=== PATIENT | male | born 1950 | race Caucasian/White ===

== ENCOUNTER 2017-11-03 06:09 | Inpatient (IN) ==
[2017-11-03] MEDS ORDERED: CeFAZolin Syr 2,000MG/20 ML 2,000 MG/20 ML SYRINGE IVPB ONE (06:23)
[2017-11-03] MEDS ORDERED: Albuterol 2.5 MG/3 ML NEBULIZER IH ONE ×2 (06:23→12:51)
[2017-11-03] MEDS ORDERED: Ringers Solution, Lactated 1,000 ML IVC SCH (06:30)
--- NOTE | 2017-11-03 07:03 | Anesthesia Evaluation PreOp ---
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 [facility], Hemorroidectomy) Alcohol Use: none Drug use: none Medications and Allergies Ascorbic Acid [Vitamin C] 500 mg PO DAILY 02/16/16 [History] Aspirin Enteric Coated [Aspirin EC] 81 mg PO DAILY 02/16/16 [History] Atorvastatin [Lipitor] 80 mg PO DAILY 02/16/16 [History] Cyanocobalamin (Vitamin B-12) [Vitamin B-12] 1,000 mcg SL DAILY 02/16/16 [ History] Gabapentin [Neurontin] 100 mg PO TID 02/16/16 [History] Nitroglycerin [Nitrostat] 0.4 mg SL Q5M PRN 02/16/16 [History] Sertraline [Zoloft] 100 mg PO DAILY 02/16/16 [History] Sotalol [Betapace] 80 mg PO Q12HR 02/16/16 [History] diazePAM [Valium] 5 mg PO TID PRN 02/16/16 [History] metFORMIN [Glucophage] 500 mg PO QPM 02/16/16 [History] 3 Allergy/AdvReac Type Severity Reaction Status Date / Time novacaine Allergy Fainting Uncoded 10/20/17 12:06 - Meds/Allergy Pre-op Review Medications Reviewed: Yes Allergies Reviewed: Yes Beta Blockers on Current Med List: Yes If Beta Blockers taken, Date/Time (Last Dose taken): 18:00 11/02 Anesthesia Results - Labs Laboratory Tests 02/08/16 10/08/17 10/20/17 10:26 13:05 12:28 WBC 8.9 Hgb 16.0 Hct 49.9 Plt Count 200 INR 0.9 Sodium 139 Potassium 4.2 Chloride 100 Carbon Dioxide 33 H BUN 12 Creatinine 1.08 Eco 10/31 EF-55-60% Mild MR No - Imaging EKG: report reviewed (SR) Anesthesia Exam O2 Sat Height 1.63 m Height 1.63 m Weight 101.605 kg Weight 101.605 kg O2 Sat by Pulse Oximetry 93 Vital Signs Temp Pulse Resp BP Pulse Ox 98.0 F 66 16 145/86 93 11/03/17 06:24 11/03/17 06:24 11/03/17 06:24 11/03/17 06:24 11/03/17 06:24 Blood glucose: 126 NPO (# of Hours): > 8 hrs Pain Scale: 0 Pain Scale Used: Numeric (1 - 10) - HEENT Pupil (Motor): Pupils equal, EOMI Mallampati: III Teeth: Missing Denture Type: Upper: Complete Oral Opening: Greater than 3 - [employer] LOC: Oriented [employer] Motor: Normal RUE, Normal LUE, Normal RLE, Normal LLE, Normal Face [employer] Sensory: Normal: RUE, LUE, RLE, LLE, Face - Cardiac Rhythm: Regular Murmur: None JVD: No Carotid Bruit: No - Pulmonary Breath Sounds: bilateral Clear Respiratory Effort: Symmetrical Anesthesia Assess/Plan ASA Score: 3 Modified Lucio Scale for Level of Consciousness: Cooperative, oriented, and tranquil Anesthetic Plan: General Autologous Blood: Yes Monitoring Plan: Standard Monitors Recovery Plan: PACU
[2017-11-03] MEDS ORDERED: *HR* Propofol 200 MG/20 ML VIAL IVP ONE (07:09)
[2017-11-03] MEDS ORDERED: *HR* FentaNYL (PF) 100 MCG/2 ML VIAL ONE (07:10)
[2017-11-03] MEDS ORDERED: *HR* Rocuronium Bromide 50 MG/5 ML VIAL ONE ×2 (07:11→09:07)
[2017-11-03] MEDS ORDERED: Ondansetron 4 MG/2 ML VIAL ONE (07:11)
[2017-11-03] MEDS ORDERED: Dexamethasone 4 MG/ML VIAL ONE ×2 (07:11→08:42)
[2017-11-03] MEDS ORDERED: Lidocaine -MPF 2% 2 ML VIAL ONE (07:11)
[2017-11-03] MEDS ORDERED: Lidocaine -MPF 4% 5 ML AMPUL ONE (07:12)
[2017-11-03] MEDS ORDERED: *HR* Remifentanil 2 MG VIAL IVP ONE ×2 (07:12→10:36)
[2017-11-03] MEDS ORDERED: *HR* Midazolam HCl 2 MG/2 ML VIAL ONE (07:14)
--- NOTE | 2017-11-03 07:27 | History & Physical Report ---
Date of Encounter: 11/03/17 Time of Encounter: 07:26 24 Hour HP Update - Instructions Instructions: If the History and Physical is less than 30 days old and was completed prior to A.M. admission and or procedure and has NOT been updated on calendar day of procedure please complete this update prior to performing procedure. - Update Patient reports changes in Medical Condition: No Changes in examination, assessment, or condition: No Changes in Medication: No Preop tests/diagnostics Reviewed: Yes Surgery Remains Indicated: Yes Consent for Planned Operative Procedure(s) Verified: Yes - Pre-Operative Checklist Preoperative Checklist Indicated: Yes Prophylactic Antibiotic Ordered: Yes Home Medications Include Beta Cat: Yes Is VTE Prophylaxis Indicated?: Yes
[2017-11-03] MEDS ORDERED: EPHEDrine 50 MG/ML VIAL ONE (07:56)
[2017-11-03] MEDS ORDERED: *HR* PHENYLEPHRINE 1,000 MCG/10 ML SYRINGE IVP ONE (07:57)
[2017-11-03] MEDS ORDERED: *HR* HYDROmorphone 2 MG TABLET PO PRN (09:17)
[2017-11-03] MEDS ORDERED: *HR* OxyCODONE Immed Rel 5 MG TABLET PO PRN (09:17)
[2017-11-03] MEDS ORDERED: Dexamethasone 4 MG/ML VIAL IVP ONE (09:17)
[2017-11-03] MEDS ORDERED: *HR* Promethazine 25 MG/ML VIAL IVP PRN (09:17)
[2017-11-03] MEDS ORDERED: *HR* Morphine 10 MG/ML VIAL ONE (11:43)
--- NOTE | 2017-11-03 12:06 | Operative Note ---
Date of procedure: 11/03/17 Pre-op diagnosis: Left renal mass Post-op diagnosis: same Procedure: Left hand-assisted laparoscopic nephrectomy Implants: None Complications: None Anesthesia: GETA Surgeon: Alex Stanley Was there an assistant golf course superintendent present: No Estimated blood loss (cc): 10 Specimen: left kidney Condition: stable Disposition: PACU Procedure in Detail: Indications: Mr. Tellez is a 67-year-old gentleman has a history of a left renal mass. Given its size and location he elected to undergo a hand-assisted laparoscopic left nephrectomy. He was informed of the risks of the surgery which include but are not limited to bleeding, infection, injury to structures, need for further procedures, recurrence, DVT, PE, ileus, bowel injury, splenic injury, and the risk of anesthesia. He is willing to proceed. Procedure: After informed consent was obtained the patient was brought back to the operating room and placed in the supine position. A timeout was performed. Gen. anesthesia was administered and an endotracheal tube was placed. A Boyd catheter was placed, and clear urine returned. He was then placed in the flank position with the left side up. He was well secured to the operating room table. All pressure points were well-padded. A 7 cm supraumbilical incision was then made. The subcutaneous tissue was then dissected down using cautery. The anterior fascia was scored with the cautery. Using a forceps the fascia was then opened. The peritoneum was then identified below. This was grasped with forceps and opened sharply with Metzenbaum scissors. Entry into the peritoneum was safe. The peritoneum was fully opened the length of the incision. I then lysed some adhesions near the umbilicus and freed the bowel from the abdominal wall. The hand port was then placed. Insufflation was achieved. A separate 1 cm incision was then made lateral to the hand port. Another 1 cm incision was made superior to the hand port. 12 mm trochars were then placed. These were placed under direct visual guidance. The white line of Toldt was then taken down using the Harmonic. The bowel was reflected off the spleen. The drug's fascia was identified and the bowel was further dissected medially. Dissection proceeded medial to the kidney and the ureter was identified. This was retracted anteriorly. The gonadal vein was identified and retracted inferiorly. Dissection proceeded up to the level of the renal vein. The renal vein was dissected out. Dissection then proceeded further superiorly. A window behind the vein was created. With my fingers I was able to palpate the artery and I was able to completely get around the hilum. The 45 mm stapler was then introduced. The hilum was stapled. Hemostasis was adequate. Attention was then turned back to the inferior aspect of the kidney. The ureter was divided with the Harmonic scalpel. The tail of the Gerota's fat was dissected and I proceeded to free the kidney laterally. The final section of the dissection occurred superiorly. The kidney was retracted medially and I was able to free those adhesions near the spleen. The adrenal gland was identified. This was left with the patient and dissection proceeded inferior to it freeing the kidney. The kidney was then placed in a 15 mm Endo Catch bag. The kidney was removed through the GelPort incision. I then surveyed the nephrectomy bed. Hemostasis was excellent. I did not identify any bleeding. The adrenal gland was identified and was not bleeding at all. Using the Endo Close the 2 port sites were closed using 0 Vicryl suture. The hand port was then closed. I ran the peritoneum closed using an 0 Vicryl suture. The fascia was closed in an interrupted fashion using 0 Vicryl suture. The wounds were irrigated. Local anesthetic was infiltrated in the wounds. The Azael's layer was closed in a running fashion using 0 Vicryl suture. The skin was all closed in a subarticular fashion using a 4-0 Monocryl. Dermabond was applied to the wounds. The patient was then awakened from general anesthesia and brought to the recovery room in good condition. All sponge, needle, and his counts were correct.
[2017-11-03] MEDS ORDERED: Acetaminophen IV 1,000 MG/100 ML INFUS..BTL ONE (12:18)
[2017-11-03] MEDS: MORPHINE SUL Oral CONC 10 MG/0.5 ML ORAL.SYG SL PRN ×2 (12:26→12:40)
[2017-11-03] MEDS ORDERED: Albuterol 2.5 MG/3 ML NEBULIZER ONE (12:52)
--- NOTE | 2017-11-03 13:19 | Anesthesia Evaluation Post Op ---
Date of Encounter: 11/03/17 Time of Encounter: 13:18 - Vital Signs Vital Signs: Vital Signs/O2 Sat, Most Current Temp Pulse Resp BP Pulse Ox 98.3 F 81 18 114/72 96 11/03/17 13:05 11/03/17 13:05 11/03/17 13:05 11/03/17 13:05 11/03/17 13:05 - Lungs Lungs: Clear Ascult./Percussion - Airway Airway: Non-obstructed - Cardiovascular Regular Rate - Mental Status Mental Status: Alert & Oriented, Answers Appropriately - Pain Pain Scale: 0 Pain Scale used: Numeric (1 - 10) - Nausea Vomiting Nausea Vomiting: Not Present - Hydration Hydration: Ice chips, Boyd catheter - Discharge PostOp Status: Transfer Patient to floor
[2017-11-03] MEDS ORDERED: diazePAM 5 MG TABLET PO PRN (14:13)
[2017-11-03] MEDS ORDERED: Ondansetron 4 MG/2 ML VIAL IVP PRN (14:13)
[2017-11-03] MEDS ORDERED: Naloxone 0.4 MG/ML INJ IVP PRN (14:13)
[2017-11-03] MEDS ORDERED: Dextrose Gel 15 GM/37.5 ML TUBE PO PRN ×2 (14:13)
[2017-11-03] MEDS ORDERED: D5% in Water 1,000 ML IVC PRN (14:13)
[2017-11-03] MEDS ORDERED: OXYCODONE Oral CONC 10 MG/0.5 ML ORAL.SYG SL PRN (14:13)
[2017-11-03] MEDS ORDERED: *HR* Dextrose 50 % in Water (Syg) 50 ML SYRINGE IVP PRN (14:13)
[2017-11-03] MEDS: 0.9 % Sodium Chloride 1,000 ML IVC SCH (15:21)
[2017-11-03] MEDS: Acetaminophen IV 1,000 MG/100 ML INFUS..BTL IVPB SCH (16:02)
[2017-11-03] MEDS: Gabapentin 100 MG CAPSULE PO SCH ×3 (16:02→20:30)
[2017-11-03] MEDS: Nicotine 21 MG PATCH.TD24 TD SCH (16:02)
[2017-11-03] MEDS: CeFAZolin Premix DUPLEX 2,000 MG/50 ML BAG IVPB SCH (16:03)
[2017-11-03] MEDS: Insulin LISPRO 300 UNITS/3 ML VIAL SQ SCH (19:58)
[2017-11-04] MEDS: Insulin LISPRO 300 UNITS/3 ML VIAL SQ SCH ×4 (00:10→17:31)
[2017-11-04] MEDS: CeFAZolin Premix DUPLEX 2,000 MG/50 ML BAG IVPB SCH (00:14)
[2017-11-04] MEDS: 0.9 % Sodium Chloride 1,000 ML IVC SCH ×3 (00:15→17:24)
[2017-11-04] MEDS: Acetaminophen IV 1,000 MG/100 ML INFUS..BTL IVPB SCH ×4 (00:59→22:34)
[2017-11-04 04:46] LABS: Basophils % 0.1 %; Hematocrit 48.7 % (37.5-50.1); Hemoglobin 15.2 g/dL (12.9-16.9); Immature Granulocytes % 0.5 % (0-4); Lymphocytes # 1.3 K/mcL (0.6-4.6); Lymphocytes % 11.5 %; Mean Corpuscular HGB Conc 31.2 g/dL (31.6-35.5); Mean Corpuscular Hemoglobin 29.9 pg (28.0-33.3); Mean Corpuscular Volume 95.9 fL (83.0-100.0); Mean Platelet Volume 10.9 fL (9.4-12.4); Monocytes # 0.9 K/mcL (0.0-1.3); Monocytes % 7.8 %; Neutrophils # 8.8 K/mcL (1.6-8.9); Platelet Count 167 K/mcL (140-400); Red Blood Count 5.08 M/mcL (4.19-5.50); Red Cell Distribution Width 13.9 % (11.5-14.5); Segmented Neutrophils % 80.1 %
[2017-11-04 05:13] LABS: Calcium 8.6 mg/dL (8.6-10.3); Potassium 4.7 mEq/L (3.5-5.1)
[2017-11-04] MEDS: *HR* Heparin 5,000 UNIT/ML VIAL SQ SCH ×2 (05:43→17:24)
--- NOTE | 2017-11-04 07:32 | Urology Progress Note ---
Date of Encounter: 11/04/17 Time of Encounter: 07:30 - Assessment and Plan (1) Renal mass, left Current Visit: Yes Status: Acute Assessment and plan: POD #1 s/p let hand assisted laparoscopic neprectomy. Doing well. 1. d/c skelton. 2. Labs are okay. 3. PT consult. 4. Clear liquids. ARBF. 5. Continue omeprazole, scds, and heprin for prophylaxis. Progress Note Narrative: Doing well this morning. Pain is present, but adequately controlled. He is sitting at the bedside now. Tolerating clears. No flatus. Objective Initial Vital Signs Temp Pulse Resp BP Pulse Ox 98.0 F 66 16 145/86 93 11/03/17 06:24 11/03/17 06:24 11/03/17 06:24 11/03/17 06:24 11/03/17 06:24 - General physical appearance Present: well developed, well nourished, no distress - Respiratory Present: normal respiratory effort - Abdomen Present: distended (incisions are c,d,i. Appropriately tender.) - Genitourinary Urine Appearance: Present: Clear - Labs 11/04/17 03:56 11/04/17 03:56 Diabetes panel 11/04/17 Range/Units 03:56 Sodium 136 (136-145) mEq/L Potassium 4.7 (3.5-5.1) mEq/L Chloride 100 (98-107) mEq/L Carbon Dioxide 29 (23-29) mEq/L BUN 19 (8-23) mg/dL Creatinine 1.54 H (0.70-1.30) mg/dL Glucose 143 H (70-105) mg/dL Calcium 8.6 (8.6-10.3) mg/dL Calcium panel 11/04/17 Range/Units 03:56 Calcium 8.6 (8.6-10.3) mg/dL Pituitary panel 11/04/17 Range/Units 03:56 Sodium 136 (136-145) mEq/L Potassium 4.7 (3.5-5.1) mEq/L Chloride 100 (98-107) mEq/L Carbon Dioxide 29 (23-29) mEq/L BUN 19 (8-23) mg/dL Creatinine 1.54 H (0.70-1.30) mg/dL Glucose 143 H (70-105) mg/dL Calcium 8.6 (8.6-10.3) mg/dL Adrenal panel 11/04/17 Range/Units 03:56 Sodium 136 (136-145) mEq/L Potassium 4.7 (3.5-5.1) mEq/L Chloride 100 (98-107) mEq/L Carbon Dioxide 29 (23-29) mEq/L BUN 19 (8-23) mg/dL Creatinine 1.54 H (0.70-1.30) mg/dL Glucose 143 H (70-105) mg/dL Calcium 8.6 (8.6-10.3) mg/dL - VTE Documentation of Mechanical Device: Intermittent pneumatic compression device Consult Discharge Plan - Plan Referrals: Shashank Martin MD [Primary Care Provider] -
[2017-11-04] MEDS: Nicotine 21 MG PATCH.TD24 TD SCH (08:31)
[2017-11-04] MEDS: Gabapentin 100 MG CAPSULE PO SCH ×3 (08:32→20:34)
[2017-11-04] MEDS: *HR* OxyCODONE Immed Rel 5 MG TABLET PO PRN ×2 (11:40→20:49)
[2017-11-05] MEDS: 0.9 % Sodium Chloride 1,000 ML IVC SCH (01:51)
[2017-11-05] MEDS: *HR* OxyCODONE Immed Rel 5 MG TABLET PO PRN (05:02)
[2017-11-05] MEDS: Insulin LISPRO 300 UNITS/3 ML VIAL SQ SCH ×4 (05:02→16:59)
[2017-11-05] MEDS: *HR* Heparin 5,000 UNIT/ML VIAL SQ SCH ×2 (05:55→16:58)
[2017-11-05] MEDS: Acetaminophen IV 1,000 MG/100 ML INFUS..BTL IVPB SCH ×2 (06:29→12:15)
--- NOTE | 2017-11-05 06:52 | Urology Progress Note ---
Date of Encounter: 11/05/17 Time of Encounter: 06:51 - Assessment and Plan (1) Renal mass, left Current Visit: Yes Status: Acute Assessment and plan: POD #2 s/p left HALN. Doing well. 1. Full liquid diet. 2. Continue ambulation. 3. Decrease IVF. 4. Dulcolax. 5. Continue heparin, scds, and omeprazole for prophylaxis. Progress Note Narrative: POD #2 s/p left HALN. Doing well. No flatus yet. Ambulating well. Voiding well. No SOB or CP. Objective Initial Vital Signs Temp Pulse Resp BP Pulse Ox 98.0 F 66 16 145/86 93 11/03/17 06:24 11/03/17 06:24 11/03/17 06:24 11/03/17 06:24 11/03/17 06:24 - General physical appearance Present: well developed, well nourished, no distress - Respiratory Present: normal respiratory effort - Abdomen Present: distended (wounds are c,d,i. Appropriately tender.) - Integumentary Present: no rash - Musculoskeletal Present: normal gait - Labs 11/04/17 03:56 11/04/17 03:56 - VTE Documentation of Mechanical Device: Intermittent pneumatic compression device Consult Discharge Plan - Plan Referrals: Shashank Martin MD [Primary Care Provider] -
[2017-11-05] MEDS ORDERED: Bisacodyl 10 MG RECTAL SUPPOSITORY RC ONE (06:53)
[2017-11-05] MEDS: Gabapentin 100 MG CAPSULE PO SCH ×3 (08:00→20:20)
[2017-11-05] MEDS: Nicotine 21 MG PATCH.TD24 TD SCH (08:00)
[2017-11-05] MEDS: D5% in 0.45% NACL w KCl 20 MEQ/1,000 ML MLS IVC SCH ×2 (08:00→21:36)
[2017-11-05] MEDS ORDERED: Acetaminophen 325 MG TABLET PO PRN (16:57)
[2017-11-06] MEDS: Insulin LISPRO 300 UNITS/3 ML VIAL SQ SCH ×2 (00:33→06:07)
[2017-11-06 04:49] LABS: Hematocrit 42.1 % (37.5-50.1); Hemoglobin 14.1 g/dL (12.9-16.9); Mean Corpuscular HGB Conc 33.5 g/dL (31.6-35.5); Mean Corpuscular Hemoglobin 30.5 pg (28.0-33.3); Mean Corpuscular Volume 91.1 fL (83.0-100.0); Platelet Count 131 K/mcL (140-400); Red Blood Count 4.62 M/mcL (4.19-5.50); Red Cell Distribution Width 13.7 % (11.5-14.5)
[2017-11-06 05:08] LABS: Phosphorous 2.1 mg/dL (2.7-4.5); Potassium 4.4 mEq/L (3.5-5.1)
[2017-11-06] MEDS: *HR* Heparin 5,000 UNIT/ML VIAL SQ SCH (05:43)
[2017-11-06] MEDS ORDERED: *HR* Metformin 500 MG TABLET PO SCH (06:00)
--- NOTE | 2017-11-06 07:01 | Discharge Summary ---
Date of Encounter: 11/06/17 Time of Encounter: 06:57 - Discharge Diagnosis (1) Renal mass, left Priority: Primary Status: Acute - Hospital Course Hospital course: Mr. Sepulveda is a 67 year old male presents for a history of a left renal mass. He underwent a left hand assisted laparoscopic nephrectomy on 11/03/2017. He did well after surgery. His bowel function slowly iimproved. His diet was advanced. He was discharged home on POD #3. He had mild erythema to his skin. He was started on cephalexin and will be monitored closely for a wound infection. - Time Spent with Patient Total time spent providing and/or coordinating discharge services: Less than 30 minutes Labs on day of discharge: Labs from last 24 hours 11/06/17 11/06/17 11/05/17 04:17 04:17 20:10 WBC 9.1 RBC 4.62 Hgb 14.1 Hct 42.1 MCV 91.1 MCH 30.5 MCHC 33.5 RDW 13.7 Plt Count 131 L MPV 11.0 Sodium 133 L Potassium 4.4 Chloride 99 Carbon Dioxide 30 H BUN 18 Creatinine 1.50 H Est GFR ( Amer) 57 L Est GFR (Non-Af Amer) 47 L BUN/Creatinine Ratio 12 Glucose 133 H POC Glucose 141 H Calculated Osmolality 280 Calcium 9.0 Phosphorus 2.1 L Magnesium 2.0 11/05/17 11/05/17 11/05/17 16:26 12:03 06:51 WBC RBC Hgb Hct MCV MCH MCHC RDW Plt Count MPV Sodium Potassium Chloride Carbon Dioxide BUN Creatinine Est GFR ( Amer) Est GFR (Non-Af Amer) BUN/Creatinine Ratio Glucose POC Glucose 121 H 109 H 92 H Calculated Osmolality Calcium Phosphorus Magnesium 11/04/17 17:26 WBC RBC Hgb Hct MCV MCH MCHC RDW Plt Count MPV Sodium Potassium Chloride Carbon Dioxide BUN Creatinine Est GFR ( Amer) Est GFR (Non-Af Amer) BUN/Creatinine Ratio Glucose POC Glucose 118 H Calculated Osmolality Calcium Phosphorus Magnesium - Discharge Medications Prescriptions: Cephalexin [Keflex] 500 mg PO Q6HR #28 capsule Docusate Sodium [Colace] 100 mg PO BID #60 capsule Oxycodone HCl/Acetaminophen [Percocet 5-325 mg Tablet] 1 each PO Q6H PRN 7 Days #25 tablet PRN Reason: Pain Home Medications: Ascorbic Acid [Vitamin C] 500 mg PO DAILY 02/16/16 [History] Aspirin Enteric Coated [Aspirin EC] 81 mg PO DAILY 02/16/16 [History] Atorvastatin [Lipitor] 80 mg PO DAILY 02/16/16 [History] Cyanocobalamin (Vitamin B-12) [Vitamin B-12] 1,000 mcg SL DAILY 02/16/16 [ History] Gabapentin [Neurontin] 100 mg PO TID 02/16/16 [History] Nitroglycerin [Nitrostat] 0.4 mg SL Q5M PRN 02/16/16 [History] Sertraline [Zoloft] 100 mg PO DAILY 02/16/16 [History] Sotalol [Betapace] 80 mg PO Q12HR 02/16/16 [History] diazePAM [Valium] 5 mg PO TID PRN 02/16/16 [History] metFORMIN [Glucophage] 500 mg PO QPM 02/16/16 [History] Cephalexin [Keflex] 500 mg PO Q6HR #28 capsule 11/06/17 [Rx] Docusate Sodium [Colace] 100 mg PO BID #60 capsule 11/06/17 [Rx] Oxycodone HCl/Acetaminophen [Percocet 5-325 mg Tablet] 1 each PO Q6H PRN 7 Days #25 tablet 11/06/17 [Rx] Allergies/Adverse Reactions: 3 Allergy/AdvReac Type Severity Reaction Status Date / Time novacaine Allergy Fainting Uncoded 10/20/17 12:06 Date of admission: 11/03/17 13:58 Primary care physician: Shashank Martin MD Consults: 11/04/17 09:25 Consult to Physical Therapy [CONS] Routine Comment: Evaluate, develop and implement POC Reason for Consult: ASsist with ambulation. Does patient have active BEDREST order?: No Is patient medically & hemodynamically stable?: Yes Patient assessed for mobility or mobilized this visit?: Yes Anticipated date of discharge: 11/06/17 Exam Initial Vital Signs Temp Pulse Resp BP Pulse Ox 98.0 F 66 16 145/86 93 11/03/17 06:24 11/03/17 06:24 11/03/17 06:24 11/03/17 06:24 11/03/17 06:24 - General physical appearance Present: well developed, well nourished, no distress - Eyes Absent: icteric - ENT Present: normal nares - Neck Present: trachea midline - Respiratory Present: normal respiratory effort - Cardiovascular Cardiovascular exam IM: RRR - Abdomen Abdomen: Present: non tender (Mild distension, wounds are clean, dry, intact) - Integumentary Present: no growths - Neurologic Present: normal coordination - Patient Status Disposition: Home, Self-Care Condition: Good Functional capacity at discharge: independent ambulation Overall status at discharge: patient is progressing back to baseline - Discharge Instructions Follow Up With: Shashank Martin MD [Primary Care Provider] - Alex Stanley MD [Partnered Physician] - (2 weeks) Additional Instructions: 1. No heavy lifting greater than 20 pounds x4 weeks. 2. No tub baths x2 weeks. 3. May shower. 4. He should follow up in 2 weeks for postoperative check. 5. He should return for any fevers, chills, nausea, vomiting, wound erythema, or significant swelling/ecchymosis. - Diet and Activity Activity: increase activity as tolerated Diet: advance to your usual diet - VTE Documentation of Mechanical Device: Intermittent pneumatic compression device
[2017-11-06 07:08] VITALS: BP 119/73
[2017-11-06] MEDS ORDERED: cephALEXin 500 MG CAPSULE PO SCH (09:00)
== END 2017-11-06 10:26 | disposition home or self-care (01) | DRG 661 ==
LOC: SAMDAY 06:09 → 3ANU 13:58
PROVIDERS: ADMIT Urology; ATTEND Urology